=== PATIENT | male | born 1985 | race Caucasian/White ===

== ENCOUNTER 2022-10-31 11:44 | Day surgery (SDC) | payer MEDICAID ==
[~2022-10-31] VITALS: Ht 190.5 cm; Wt 77.2 kg
[~2022-10-31 11:44] MED LIST: CHOL500013 PO; SODIUM CHLORIDE 0.9% 1,000 ML IV ONE; SODIUM CHLORIDE 0.9% 1,000 ML ONE
[2022-10-31 12:36] LABS: COVID AG,FIA SOURCE NASAL SWAB
[2022-10-31] MEDS ORDERED: MIDAZOLAM HCL 2 MG/2 ML VIAL ONE (13:10)
[2022-10-31] MEDS ORDERED: FentaNYL CITRATE PF 100 MCG/2 ML VIAL ONE (13:10)
== END 2022-10-31 15:10 | disposition home or self-care (01) ==
LOC: SURGERY 11:44
PROVIDERS: ATTEND Internal Medicine Gastroenterology
DX: K58.9 Irritable bowel syndrome, unspecified (principal); D12.5 Benign neoplasm of sigmoid colon; Z20.822 Contact with and (suspected) exposure to COVID-19; Z79.899 Other long term (current) drug therapy; Z87.891 Personal history of nicotine dependence
CPT/HCPCS: 45380; 99152; 87426; C1769; J3010; J2250; J7030; C9803